=== PATIENT | male | born 1960 | race Caucasian/White ===

== ENCOUNTER 2024-11-05 09:06 | Outpatient (REF) | payer MEDICARE, SELFPAY ==
--- OUTSIDE RECORDS SUMMARY | 2024-11-05 10:27 | XMS_ITS | Clinical Summary ---
Author Organization [facility] it Address [address] [place] [address] Care Team Providers Care Yield Engineer Name Role Phone Raymond Jordan DO Primary Care Provider [phone] Surgical History Surgery Date Site/Laterality Comments OTHER SURGICAL HISTORY 05/01 PROCEDURE: DX MAMMO PROCESS IMAGE TERELL; COMMENT: neg SECTION PROCEDURE: HISTORICAL DELIVERY Medical History Medical History Date Comments Dizziness and giddiness 03/08/2005 DX:Dizzi ness and giddiness Obstructive sleep apnea (salome lt) (pediatric) 06/25/2013 DX:Obstructive sleep apnea ( adult) (pediatric); COMMENT: AHI 25 PLMD (periodic limb movement disorder) 06/25/2013 DX:PLMD (periodic limb movement disorder); COMMENT: Improved with CPAP Family History Medical History Relation Name Comments Breast cancer Aunt 2 mat aunt Colon cancer Maternal Grandfather Colon cancer Maternal Grandmother Other cancer Paternal Grandmother lung Other cancer Sister throat Relation Name Status Comments Aunt Father Alive Maternal Grandfather Maternal Grandmother Alive [place] Mother Alive [place] Paternal Grandmother Sister Social History Tobacco Use Types Packs/Day Years Used Date Smoking Tobacco: Every Day Cigarettes Smokeless Tobacco: Never Alcohol Use Standard Drinks/Week Comments No 0 (1 standard drink = 0.6 oz pur e alcohol) Comments Unknown Sex and Gender Information Value Date Recorded Sex Assigned at Not on file Legal Sex Female 1:28 AM EST Gender Identity Not on file Sexual Orientation Not on file Obstetrics History Plan of Treatment Health Maintenance Due Date Last Done Comments Breast Cancer Screening 1960 DTaP,Tdap,and Td Vaccines (1 - Tdap) 07/24/1979 Cervical Cancer Screening: P ap Smear 1981 Pneumococcal Vaccine: 50+ Ye ars (1 of 1 - PCV) 2010 Zoster Vaccines (1 of 2) 2010 Depression Screening 02/28/2024 COVID-19 Vaccine (1 - 2023-2 5 season) 2024 Influenza Vaccine (#1) 2024 RSV Immunization Adult Patie nts (1 - 1-dose 75+ series) 07/24/2035 HIB Vaccines Aged Out No longer eligi ble based on patient's age to complete this topic HPV Vaccines Aged Out No longer eligi ble based on patient's age to complete this topic Hepatitis A Vaccines Aged Out No long er eligible based on patient's age to complete this topic Hepatitis B Vaccines Aged Out No long er eligible based on patient's age to complete this topic IPV Vaccines Aged Out No longer eligi ble based on patient's age to complete this topic MMR Vaccines Aged Out No longer eligi ble based on patient's age to complete this topic Meningococcal ACWY Vaccine Aged Out N o longer eligible based on patient's age to complete this topic Meningococcal B Vaccine Aged Out No l onger eligible based on patient's age to complete this topic RSV Immunization Patients Un acacia 20 months Aged Out No longer eligible b ased on patient's age to complete this topic Varicella Vaccines Aged Out No longer eligible based on patient's age to complete this topic Care Teams Yield Engineer Relationship Specialty Start Date End Date Raymond Jordan DO [address] [place] [id number] PCP - General Internal Medicine 10/11/17
--- OUTSIDE RECORDS SUMMARY | 2024-11-05 10:27 | XMS_ITS | Clinical Summary ---
Author Organization [facility] Address [address] [place] [address] Phone Care Team Providers Care Professional Housing Consultant Name Role Phone Anastasiya Freedman Primary Care Provide r Schuyler Carodna MD Unavailable [phone] Frantz Diaz MD Unavailable [phone] Raymond Jordan DO Unavailable [phone] Allergies Active Allergy Reactions Criticality Noted Date Comments Dog Dander 08/23/2018 (congestion) Grass Pollen 08/23/2018 Trees (congestion) Mold Extracts 08/23/2018 Congestion Medications PROAIR HFA 90 mcg/actuation inhaler INHALE 2 PUFFS BY MOUTH EVERY 4 HOURS NEEDED FOR WHEEZING 11 9 Active amLODIPine (NORVASC) 5 MG tablet Take 5 mg by mouth daily. 0 9 Active atorvastatin (LIPITOR) 40 MG tablet Take 40 mg by mouth daily. 0 9 Active PULMICORT FLEXHALER 90 mcg/actuation inhaler INHALE 2 PUFFS BY MOUTH TWICE A DAY 2 9 Active cloNIDine HCl (CATAPRES) 0.1 MG tablet TAKE 1 TABLET BY MOUTH UP TO TWICE A DAY NEEDED FOR PANIC ATTACK/PANIC ATTACK 2 9 Active cyclobenzaprine (FLEXERIL) 5 MG tablet TAKE 1 TABLET BY MOUTH THREE TIMES A DAY NEEDED 0 9 Active dicyclomine (BENTYL) 10 MG capsule 0 9 Active doxycycline hyclate (VIBRAMYCIN) 100 MG capsule as needed. 0 9 Active DULoxetine (CYMBALTA) 60 MG capsule TAKE 1 CAPSULE BY MOUTH EVERY DAY IN THE MORNING 1 9 Active DUPIXENT 300 mg/2 mL subcutaneous injection 0 9 Active fluticasone propionate (FLONASE) 50 mcg/actuation nasal spray instill 1 spray into each nostril twice a day 0 9 Active furosemide (LASIX) 20 MG tablet Take 20 mg by mouth daily. 0 9 Active lisinopril (PRINIVIL,ZESTRI L) 5 MG tablet 0 9 Active LORazepam (ATIVAN) 0.5 MG tablet TAKE 1 TABLET BY MOUTH UP TO 3 TIMES A DAY NEEDED 2 9 Active metoprolol tartrate (LOPRESSOR) 25 MG tablet 50 mg 2 (two) times a day. 11 9 Active montelukast (SINGULAIR) 10 mg tablet Take 10 mg by mouth daily. 0 9 Active nystatin (MYCOSTATIN) 100,000 units/mL suspension SWISH,RETAIN IN MOUTH LONG POSSIBLE (SEVERAL MINUTES) THEN ... (REFER TO PRESCRIPTION NOTES). 0 9 Active omeprazole (PRILOSEC) 40 MG capsule Take 40 mg by mouth daily. 0 9 Active SPIRIVA RESPIMAT 1.25 mcg/actuation Mist INHALE 2 PUFFS BY MOUTH DAILY 11 9 Active topiramate (TOPAMAX) 50 MG tablet Take 50 mg by mouth. 0 9 Active zolpidem (AMBIEN) 5 MG tablet TAKE 1 TABLET BY MOUTH EVERY DAY AT BEDTIME NEEDED 2 9 Active Active Problems Problem Noted Date Diagnosed Date Lung nodule 06/14/2018 Asthma Sleep apnea PTSD (post-traumatic stress disorder) Major depression Lumbar stenosis Fibromyalgia Hypertension GERD (gastroesophageal reflux disease) Family History Medical History Relation Comments COPD Sister Relation Status Comments Father Alive Mother Alive Sister Alive Social History Tobacco Use Types Packs/Day Years Used Date Smoking Tobacco: Every Day Cigarettes 1 30 Smokeless Tobacco: Never Education Answer Date Recorded Are you interested in more education? Not on karen e 06/24/2022 Are you concerned about learning? Not on file 06/24/2022 No 06/24/2022 No 06/24/2022 Digital Access Answer Date Recorded No 2022 No 2022 No 2022 Reliable internet access at home? Not on file 2022 Device with a working camera? Not on file Comments Unknown Sex and Gender Information Value Date Recorded Sex Assigned at Not on file Legal Sex Female 3:52 PM EDT Gender Identity Not on file Sexual Orientation Not on file Last Filed Vital Signs Vital Sign Reading Time Taken Comments Blood Pressure 77/48 08/23/2018 9:56 AM EDT Pulse 65 08/23/2018 9:54 AM EDT Temperature 36.7 C (98.1 F) 08/23/2018 9:54 AM EDT Respiratory Rate 18 08/23/2018 9:54 AM EDT Oxygen Saturation 97% 08/23/2018 9:54 AM EDT Inhaled Oxygen Concentration - - Weight 86.2 kg (190 lb) 08/23/2018 9:54 AM EDT Height 157.2 cm (5' 1.89 ) 08/23/2018 9:54 AM ED T Body Mass Index 34.88 08/23/2018 9:54 AM EDT Plan of Treatment Health Maintenance Due Date Last Done Comments Adult Td,Tdap Booster 1960 BLOOD PRESSURE 1960 CREATININE LEVEL 1960 LIPID PANEL 1960 POTASSIUM LEVEL 1960 SMOKING Hx and SMOKELESS TOBACCO SCREENING 1973 HEPATITIS C SCREENING 1978 HIV ONE-TIME SCREENING (18-6 5 YEARS) 1978 PNEUMOCOCCAL VACCINES (50+ years) (1 of 2 - PCV) 07/24/1979 PAP SMEAR 1981 MAMMOGRAM 2000 COLOGUARD 2005 COLONOSCOPY 2005 COLORECTAL CANCER SCREENING 2005 FIT TEST 2005 FOBT 2005 SIGMOIDOSCOPY 2005 VIRTUAL COLONOSCOPY 2005 ZOSTER VACCINES (1 of 2) 2010 DEPRESSION SCREENING 08/24/2019 08/23/2018 RSV VACCINE (1 - Risk 60-74 years 1-dose series) 2020 INFLUENZA VACCINE (#1) 2024 , 12/02/2018, 11/01/2016 COVID-19 VACCINE (2024-2 6 season) 2024 05/27/2020 HEPATITIS A VACCINES Aged Out No long er eligible based on patient's age to complete this topic HIB VACCINES Aged Out No longer eligi ble based on patient's age to complete this topic MENINGOCOCCAL VACCINES (ACWY) Aged Out No longer eligible based on patient's age to complete this topic MENINGOCOCCAL VACCINES (B) Aged Out N o longer eligible based on patient's age to complete this topic Medical Devices Not on file [place] [address] [address] [place] [address] [facility] [address] [address] Care Teams Professional Housing Consultant Relationship Specialty Start Date End Date Anastasiya Freedman PA [address] [place] [address] PCP - General Unknown Provider Specialty 06/08/18 Schuyler Cardona MD [address] [place] [id number] [email or web address] Thoracic Surgery 08/20/18 Frantz Diaz MD [address] [place] [address] [address] [place] [address] Internal Medicine 08/29/18 Raymond Jordan DO [address] [place] [address] [address] [place] [address] Internal Medicine 08/29/18 Additional Source Comments The information contained in this document represents components of the legal health record. It is not the complete legal health record.[facility]
== END 2024-11-05 09:07 | disposition home or self-care (01) ==
LOC: CF 09:06
DX: Z13.89 Encounter for screening for other disorder (principal)